=== PATIENT | female | born 2000 | race Two or more races ===

== ENCOUNTER 2024-06-26 13:13 | Emergency (ER) | payer MEDICAID, SELFPAY ==
[2024-06-26 13:29] VITALS: BP 124/85; PULSE 76; RESP 16; TEMP 36.7; O2SAT 98; BMI 26.8
--- NOTE | 2024-06-26 13:29 | XR_ITS ---
Examination: Complete OB ultrasound, less than 14 weeks, transabdominal Date and time of exam: June 26, 2024 1358 hrs. Indications: Positive test, vaginal bleeding beginning one week ago with onset pelvic pain today Technique: Obstetrical ultrasound images less than 14 weeks performed via transabdominal imaging Findings: Uterus 6.9 cm no intrauterine gestational sac No pole No cardiac activity Right ovary 2.8 cm arterial flow small follicles Left ovary 2.6 cm arterial flow cystic structure with no internal echoes and free fluid in the adnexal region Impression: No intrauterine gestation Cystic structure in the left adnexal region 6 x 5 x 5 mm, please see the transvaginal pelvic sonogram report
--- NOTE | 2024-06-26 13:30 | PD.EDVAGBL ---
ED OB Contraction Preg RMI/HPI General Chief complaint: Abdominal Pain Stated complaint: 13 WEEKS GESTATION SENT BY [facility] Time Seen by Provider: 06/26/24 13:32 Source: patient Arrival date/time: 06/26/24 13:13 24-year-old female with no known medical history presents to the emergency room with a chief complaint of lower abdominal cramping and vaginal spotting. Patient is currently 13 weeks . She is a G4, P0. Mode of arrival: ambulatory Limitations: no limitations Related Data Home Medications ?Medication ?Instructions ?Recorded ?Confirmed vit no.95-ferrous 1 tab PO QDAY 05/24/22 05/24/22 fumarate 28 mg-folic acid 800 mcg tablet () Allergies Allergy/AdvReac Type Severity Reaction Status Date / Time No Known Drug Allergies Allergy Verified 06/26/24 13:17 Review of Systems Review of Systems Systems Reviewed: All systems reviewed, normal except as documented Constitutional Constitutional: Reports system reviewed and no additional complaints, except as documented, Denies fatigue, Denies fever(s), Denies headache(s) and Denies weakness Eyes Eyes: Reports system reviewed and no additional complaints, except as documented, Denies blurry vision and Denies change in vision ENT Ears, Nose, Mouth, and Throat: Reports system reviewed and no additional complaints, except as documented, Denies otalgia, Denies headache(s), Denies nasal congestion, Denies throat swelling and Denies vertigo Cardiovascular Cardiovascular: Reports system reviewed and no additional complaints, except as documented, Denies chest pain, Denies dyspnea and Denies dyspnea on exertion Respiratory Respiratory: Reports system reviewed and no additional complaints, except as documented, Denies chest congestion, Denies cough, Denies dyspnea, Denies dyspnea on exertion and Denies wheezing Gastrointestinal Gastrointestinal: Reports system reviewed and no additional complaints, except as documented, Denies abdominal pain, Denies cramping, Denies nausea and Denies vomiting Genitourinary Genitourinary: Reports system reviewed and no additional complaints, except as documented, Reports abnormal vaginal bleeding and Reports pelvic pain Musculoskeletal Musculoskeletal: Reports system reviewed and no additional complaints, except as documented and Denies back pain Integumentary/Breasts Skin/Breast: Reports system reviewed and no additional complaints, except as documented and Denies wounds Neurologic Neurologic: Reports system reviewed and no additional complaints, except as documented, Denies confusion, Denies headache(s), Denies lack of coordination, Denies vertigo and Denies weakness Psychiatric Psychiatric: Reports system reviewed and no additional complaints, except as documented, Denies anxiety, Denies confusion, Denies depression, Denies paranoia, Denies suicidal ideation and Denies tactile hallucinations Endocrine Endocrine: Reports system reviewed and no additional complaints, except as documented and Denies fatigue Hematologic/Lymphatic Hematologic/Lymphatic: Reports system reviewed and no additional complaints, except as documented and Denies lymphadenopathy Allergic/Immunologic Allergic/Immunologic: Reports system reviewed and no additional complaints, except as documented, Denies throat swelling, Denies urticaria and Denies wheezing Past Medical History Past Medical History NEUROLOGIC: Positive Neurological Disorders (hx of headaches) CARDIAC: Negative Cardiac Disorders or Congestive Heart Failure RESPIRATORY: Positive Asthma (as a child. no medication. no issues as an adult); Negative Chronic Obstructive Pulmonary Disease (COPD) GASTROINTESTINAL: Negative Gastrointestinal Disorders GENITOURINARY: Negative Genitourinary Disorders or Renal Disease MUSCULOSKELETAL: Negative Musculoskeletal Disorders ENDOCRINE: Negative Endocrine Disorders, Diabetes Mellitus Type 1 or Diabetes Mellitus Type 2 HEMATOLOGIC: Negative Blood Disorders OTHER HISTORY: Negative Hospitalization, Autoimmune Disease or Falls Family History FAMILY HISTORY: Negative Family Psychiatric Problems, Family Respiratory Disorders, Family Cardiac Disorders, Family Gastrointestinal Problems, Family Cancer, Family Surgery or Family Anesthesia Reaction Social History SMOKING STATUS: Never smoker ED Exam General Limitations: Present no limitations General appearance: Present alert and in no apparent distress Head Head exam: Present atraumatic Eye Eye exam: Present normal appearance, PERRL and EOMI ENT ENT exam: Present normal exam, normal oropharynx and mucous membranes moist Neck Neck exam: Present normal inspection, full ROM and trachea midline Chest Chest inspection: Present normal inspection and symmetric chest wall rise Respiratory Respiratory exam: Present normal lung sounds bilaterally Cardiovascular Cardiovascular exam: Present regular rate, normal rhythm and normal heart sounds Abdominal Exam Abdominal exam: Present soft, tenderness and normal bowel sounds Abdominal tenderness: Present mild Speculum exam: Present vaginal bleeding Extremities Exam Extremities exam: Present normal inspection and full ROM Back Exam Back exam: Present normal inspection and full ROM Neurological Exam Neurological exam: Present alert, oriented X3 and CN II-XII intact Psychiatric Psychiatric exam: Present normal affect and normal mood Skin Skin exam: Present warm, dry, intact and normal color Course Quality Measures none Orders Category Date Time Status US OB <= 14 weeks fetus Stat Exams 06/26/24 13:29 Completed US OB transvaginal Stat Exams 06/26/24 14:11 Completed ABO/RH Type Stat Lab 06/26/24 13:51 Completed Beta HCG,Quantitative Stat Lab 06/26/24 13:51 Completed Beta HCG,Quantitative Stat Lab 06/26/24 16:20 Completed CBC Stat Lab 06/26/24 13:51 Completed CMP [Comprehensive Metabolic Panel] Stat Lab 06/26/24 13:51 Completed UA [Urinalysis] Stat Lab 06/26/24 14:47 Completed Vital Signs Vital signs: Vital Signs Temperature 98.1 F 06/26/24 13:29 Pulse Rate 76 06/26/24 13:29 Respiratory Rate 16 06/26/24 13:29 Blood Pressure 124/85 H 06/26/24 13:29 Pulse Oximetry (%) 98 06/26/24 13:29 Oxygen Delivery Method Room Air 06/26/24 13:29 O2 saturation within normal limits Vaginal Bleeding MDM Narrative MDM Narrative: 24-year-old female with no known medical history presents to the emergency room with a chief complaint of lower abdominal cramping and vaginal spotting. Patient is currently 13 weeks . She is a G4, P0. Patient is hemodynamically stable and in no apparent distress. Physical examination shows some bilateral pelvic pain. Patient states the signs and symptoms have been going on for the last 2 days. Ultrasound OB was completed and found a cystic structure adjacent to the left ovary. One of the differentials is a ectopic . Patient's hCG levels were 3, I repeated the hCG levels once more and they were again 3. Dr. Carias the BUTTON ATTACHING MACHINE OPERATOR on-call was consulted. She will be coming in after to see the patient. At this time this patient was signed off to my colleague NOLVIA Fisher. Report was given to him and he will follow-up with the patient after Dr. Carias comes and evaluates her. Patient data External records reviewed:: [facility] previous records Clinical information provided by:: patient Social determinants that could affect healthcare access:: none Patient has the following chronic illnesses:: No chronic illness How is presenting disease/condition affected by chronic disease/condition?: no chronic disease Evaluation data The following diagnostics were reviewed and interpreted by me:: lab results and radiology exam(s) Lab and/or radiology exams considered but not ordered:: Labs and radiology exams considered and ordered Interpretation Summary: OB ultrasound-Findings: Uterus 7.8 cm no intrauterine gestation Right ovary 3.0 cm arterial flow small follicles Left ovary 2.7 cm arterial flow small follicles Adjacent to the left ovary cystic structure 4 x 4 x 6 mm, early ectopic would be included in the differential Impression: No intrauterine gestation Cystic structure adjacent to the left ovary 4 x 4 x 6 mm, consider left ectopic , strongly recommend short-term follow-up transvaginal pelvic sonography Medications / Prescriptions Medications or Prescriptions considered but not ordered:: No medication given Medication administrations:: No medication given Consultations Consultation(s) initiated? (list below): No Diagnosis Vaginal Bleeding Differential Diagnosis: threatened , dysfunctional uterine bleeding, ectopic without intrauterine and vaginal bleeding Most likely diagnosis given after review of the tests above:: Vaginal bleeding Admission Indicated Admission indicated?: not indicated Admission Request Was there a request for admission?: No Disposition Plan Disposition Plan: Discharge Discharge Attestation Discharge Attestation: The patient and all family members were given an opportunity to ask questions and understood the discharge instructions. Discharge instructions specifically effects, indications for sooner follow up or return to the emergency department, and the expected course of current diagnosis. Patient condition: Stable Discharge Plan Plan Patient Disposition: HOME (Self Care) Patient condition on transfer: Stable Prescriptions/Referrals Prescriptions/Med Rec: No Action PNV cmb#95-ferrous fumarate-FA [] 28 mg iron- 800 mcg Tablet 1 tab PO QDAY Referrals: Jacinto Bangura MD [Primary Care Provider] - In 1 week Problem List Clinical Impression: Miscarriage Patient/Caregiver Discharge Instructions Other Activity Instructions:: Follow-up with your BUTTON ATTACHING MACHINE OPERATOR if there is heavy bleeding with large amount of blood and abdominal pain return to emergency room for reevaluation Education Materials: Understanding Miscarriage ..., Miscarriage Trying Again Print Language: [place] Stand Alone Forms: Telma Award Info., Work/School Release, Patient Portal Info Letter PA/WILVER Supervising Physician PA/WILVER Supervising Physician: Ashley Fisher ENP
[2024-06-26 14:10] LABS: Basophils # (Auto) 0.1 Thou/mm3 (0.0-0.2); Basophils % (Auto) 1 % (0-2.5); Eosinophils # (Auto) 0.2 Thou/mm3 (0.0-0.5); Eosinophils % (Auto) 2 % (0-10); Hematocrit 40.2 % (36.0-46.0); Hemoglobin 14.4 g/dL (12.0-16.0); Immature Granulocytes % (Auto) 0 % (0-0); Immature Granulocytes Auto 0.02 Thou/mm3 (0.00-0.00); Lymphocytes # (Auto) 3.4 Thou/mm3 (1.0-4.8); Lymphocytes % (Auto) 39 % (10-50); Mean Corpuscular HGB Conc 35.8 g/dl (31.0-37.0); Mean Corpuscular Hemoglobin 30.6 pg (25.0-35.0); Mean Corpuscular Volume 86 fL (80-100); Monocytes # (Auto) 0.7 Thou/mm3 (0.0-0.8); Monocytes % (Auto) 8 % (0-12); Neutrophils # (Auto) 4.3 Thou/mm3 (1.8-7.7); Neutrophils % (Auto) 50 % (37-80); Nucleated Red Blood Cell % 0 /100 WBC (0); Platelet Count 360 Thou/mm3 (140-440); RDW Standard Deviation 38.6 fL (36.4-46.3); White Blood Count 8.6 Thou/mm3 (3.6-11.0)
--- NOTE | 2024-06-26 14:11 | XR_ITS ---
Examination: OB Transvaginal ultrasound of the pelvis, complete Technique: Transvaginal sonographic images pelvis performed using cedeno scale imaging Exam date and time: June 26, 2024 1417 hrs. Indications: Positive home test, onset vaginal bleeding beginning one week ago, onset of pelvic pain today Findings: Uterus 7.8 cm no intrauterine gestation Right ovary 3.0 cm arterial flow small follicles Left ovary 2.7 cm arterial flow small follicles Adjacent to the left ovary cystic structure 4 x 4 x 6 mm, early ectopic would be included in the differential Impression: No intrauterine gestation Cystic structure adjacent to the left ovary 4 x 4 x 6 mm, consider left ectopic , strongly recommend short-term follow-up transvaginal pelvic sonography
[2024-06-26 14:27] LABS: Collection Type, Urine Clean Catch; Color,Urine Yellow (Lt Yel-Yel)
[2024-06-26 14:28] LABS: Bilirubin,Urine Negative (Negative); Blood,Urine Negative (Negative); Clarity,Urine Clear (Clear/Hazy); Glucose, Urine Negative (Negative); Ketones,Urine Negative (Negative); Leukocyte Esterase,Urine Positive (Negative); Nitrite,Urine Negative (Negative); PH,Urine 6.5 (5.0-7.0); Protein,Urine Trace (Neg - Trace); RBC,Urine 4 /hpf (0-3); Specific Gravity,Urine 1.035 (1.001-1.035); Squamous Epithelial Cell,Urine 9 /hpf (0-5); Urobilinogen,Urine Negative mg/dL (0.0-1.0); WBC,Urine 4 /hpf (0-5)
[2024-06-26 14:28] LABS: Alanine Aminotransferase 74 U/L (10-49); Albumin, Serum 4.2 gm/dL (3.5-5.0); Albumin/Globulin Ratio 1.4 (1.2-2.2); Alkaline Phosphatase 153 U/L (46-116); Anion Gap 6 (7-16); Aspartate Amino Transferase 40 U/L (0-34); BUN/Creatinine Ratio 14 Ratio (12-20); Beta HCG,Quantitative 3 mIU/mL (<5.0); Bilirubin,Total 0.4 mg/dL (0.3-1.2); Blood Urea Nitrogen 14 mg/dL (9-23); Calcium 9.5 mg/dL (8.3-10.6); Calcium (Corrected) 9.5 mg/dL (8.5-10.1); Carbon Dioxide 27.7 mMol/L (20.0-31.0); Chloride 106 mMol/L (98-107); Estimated Creatinine Clearance 82.1 mL/min (>60); Globulin 3.1 gm/dL (2.3-3.5); Glucose 82 mg/dL (74-106); Osmolality,Calculated 278 (275-295); Potassium 3.7 mMol/L (3.4-5.1); Sodium 140 mMol/L (136-145); Total Protein 7.3 gm/dL (5.7-8.2); eGFR > 60 See Note
[2024-06-26 16:24] VITALS: BP 101/69; PULSE 72; RESP 16; TEMP 37.2; O2SAT 99
[2024-06-26 16:47] LABS: Beta HCG,Quantitative 3 mIU/mL (<5.0)
[2024-06-26 17:10] VITALS: BP 101/71; PULSE 70; RESP 14; O2SAT 99
[2024-06-26 18:24] VITALS: BP 101/78; PULSE 77; RESP 18; TEMP 36.9; O2SAT 99
--- NOTE | 2024-06-26 19:45 | PD.EDADDENDU ---
Emergency Room Addendum Addendum Narrative: Patient seen by Dr. Morfin at 1945, who states that this cystic site is millimeters not centimeters therefore patient to be discharged home to follow-up on outpatient basis.
--- NOTE | 2024-06-26 19:49 | PD.GYNCONS ---
POLITICAL THEORY PROFESSOR HPI Data of Consult Primary Care Provider: Jacinto Bangura MD Consult Narrative History of present illness: Lizy is a 24yo presenting to the ER for concern of LLQ abdominal pain during . She notes that she took a test in April and it was positive, then she went to the clinic where test was repeated and negative. She then repeated the test in May when she started to have bleeding and it was positive. She went to the clinic and test there was positive- she did not have an ultrasound at that time since there was no availability for new patients. She was referred to [facility] where she made an appointment for July 12, but she continued to have typical period-like bleeding that lasted for a week. She notes that during the week of bleeding, she did not have a BM and had lower left abdominal pain that went away eventually after having a BM. The pain that brought her in today is also on the lower left side and she notes she currently has constipation. She has had no bleeding beyond the week of bleeding she had in May. cc:: cc: Review of Systems Review of Systems Narrative Review of Systems: Review of Systems Systems Reviewed: All systems reviewed, normal except as documented Constitutional Constitutional: Denies body ache(s), Denies chills, Denies fever(s) and Denies headache(s) ENT Ears, Nose, Mouth, and Throat: Denies headache(s) and Denies vertigo Cardiovascular Cardiovascular: Denies chest pain, Denies palpitations, Denies dyspnea and Denies syncope Respiratory Respiratory: Denies cough, Denies dyspnea Gastrointestinal Gastrointestinal: Denies nausea and Denies vomiting Neurologic Neurologic: Denies convulsions, Denies headache(s), Denies other visual disturbances, Denies syncope and Denies vertigo Past Medical History Family History OTHER FAMILY HX: non-contributory Surgical History SURGICAL: Negative Section Social History SOCIAL: no tobacco or illicit drug use Past Medical History Comments PMH COMMENT: Patient endorses hx of ovarian cysts in the past. Ob hx: : early miscarriage (occured at 12wk but stopped growing at 6wk) G2: 06/17/22 vaginal delivery of hydropic baby at 25w3d at [facility], apgars 0/0 G3: early miscarriage G4: recent chemical (hcg is 3 today) Meds Home Medications and Allergies Home Medications ?Medication ?Instructions ?Recorded ?Confirmed ?Type vit no.95-ferrous 1 tab PO QDAY 05/24/22 05/24/22 History fumarate 28 mg-folic acid 800 mcg tablet () Allergies Allergy/AdvReac Type Severity Reaction Status Date / Time No Known Drug Allergies Allergy Verified 06/26/24 13:17 Exam - POLITICAL THEORY PROFESSOR Vital Signs Temp Pulse Resp BP Pulse Ox O2 Del Method 98.5 F 77 18 101/78 99 Room Air 06/26/24 18:24 06/26/24 18:24 06/26/24 18:24 06/26/24 18:24 06/26/24 18:24 06/26/24 18:24 Narrative Exam General: well developed, well nourished, no acute distress, conversant Cardiac: normal heart rate Lungs: breathing without distress Abdomen: soft, non-tender, no rebound or guarding Extremities: no edema of BLE POLITICAL THEORY PROFESSOR - Results Labs 06/26/24 13:51 06/26/24 13:51 Labs: Short CBC 06/26/24 Range/Units 13:51 WBC 8.6 (3.6-11.0) Thou/mm3 Hgb 14.4 (12.0-16.0) g/dL Hct 40.2 (36.0-46.0) % Plt Count 360 (140-440) Thou/mm3 BMP 06/26/24 13:51 Sodium 140 Potassium 3.7 Chloride 106 Carbon Dioxide 27.7 BUN 14 Creatinine 1.0 Glucose 82 Calcium 9.5 Liver Function 06/26/24 Range/Units 13:51 Total Bilirubin 0.4 (0.3-1.2) mg/dL AST 40 H (0-34) U/L ALT 74 H (10-49) U/L Alkaline Phosphatase 153 H (46-116) U/L Albumin 4.2 (3.5-5.0) gm/dL Urine 06/26/24 Range/Units 14:47 Urine Color Yellow (Lt Yel-Yel) Urine Clarity Clear (Clear/Hazy) Urine pH 6.5 (5.0-7.0) Ur Specific [place] 1.035 (1.001-1.035) Urine Protein Trace (Neg - Trace) Urine Glucose (UA) Negative (Negative) Impressions Impression: Examination: OB Transvaginal ultrasound of the pelvis, complete Technique: Transvaginal sonographic images pelvis performed using cedeno scale imaging Exam date and time: June 26, 2024 1417 hrs. Indications: Positive home test, onset vaginal bleeding beginning one week ago, onset of pelvic pain today Findings: Uterus 7.8 cm no intrauterine gestation Right ovary 3.0 cm arterial flow small follicles Left ovary 2.7 cm arterial flow small follicles Adjacent to the left ovary cystic structure 4 x 4 x 6 mm, early ectopic would be included in the differential Impression: No intrauterine gestation Cystic structure adjacent to the left ovary 4 x 4 x 6 mm, consider left ectopic , strongly recommend short-term follow-up transvaginal pelvic sonography Assessment and Plan Assessment and plan (1) History of recurrent miscarriages: Status: Acute Assessment and plan: Lizy is a 24yo presenting today for LLQ abdominal pain. Hcg is 3, which indicates completed miscarriage, which is consistent with stated history of menstrual-like week of bleeding in May. Uterus empty on ultrasound, small 4x6mm cystic area adjacent to left ovary. Patient endorses intermittent constipation, which is likely the cause of her LLQ pain. Hgb 14.4. Vitals and exam wnl. Plan: -I had a long discussion with Lizy regarding diagnosis of recurrent loss. This needs a workup in clinic to rule out APAS, etc. I provided her with the office phone number of Dr. Areli Bradley to schedule an appointment to discuss RPL workup. -Discussed to continue PNV -Discussed to increase hydration and fiber in diet to avoid constipation -Discussed 4x6mm left ovarian cyst is not a concerning finding -Safe for discharge home (2) Constipation: Status: Acute (3) Left ovarian cyst: Status: Acute (2) Constipation Qualifiers: Constipation type: unspecified constipation type Qualified Code(s): K59.00 - Constipation, unspecified
[2024-06-26 19:52] VITALS: RESP 18
--- NOTE | 2024-07-04 08:37 | PD.ADDPROG ---
Addendum Progress Note Addendum Date of report being addended: 06/26/24 Narrative: Patient was seen by my colleague NOLVIA Fisher. Dr. Carias GENERAL LEDGER BOOKKEEPER on-call evaluated the patient and the patient was cleared for discharge. She has to follow-up with her GENERAL LEDGER BOOKKEEPER in the next 48 to 72 hours or return to the emergency room for any evidence of worsening signs or symptoms
== END 2024-06-26 19:53 | disposition home or self-care (01) ==
PROVIDERS: Nurse Practitioner Family; Emergency Provider Family Medicine; PCP Family Medicine
DX: O03.9 Complete or unspecified spontaneous abortion without complication (principal)
CPT/HCPCS: 36415; 76801; 76817; 80053; 81001; 84702; 85025; 86900; 86901; 99284